=== PATIENT | male | born 1965 | race Caucasian/White ===

== ENCOUNTER → 2023-09-08 | Outpatient (CLI) | payer OTHER, SELFPAY | END | disposition home or self-care (01) | LOC: RAD.FUTURE 08:36 | PROVIDERS: Visit Provider Chiropractor | DX: M19.90 Unspecified osteoarthritis, unspecified site (principal) ==

== ENCOUNTER → 2023-09-19 | Outpatient (CLI) | payer OTHER, SELFPAY ==
--- NOTE | 2023-09-19 09:07 | RAD_ITS ---
STUDY: X-RAY - LUMBAR SPINE REASON FOR EXAM: Male, 57 years old. Pain. TECHNIQUE: 3 view(s) of the lumbar spine were obtained. COMPARISON: None FINDINGS: Normal lumbar lordosis. No substantial scoliosis. Normal alignment of the vertebrae. Diffuse lower thoracic and lumbosacral facet sclerosis. Intervertebral disc space narrowing in the lumbosacral spine diffusely with small osteophytes most marked at L5-S1. Vacuum phenomenon with endplate sclerosis at L5-S1. Normal soft tissues. RAD/Lumbar Spine 2 or 3 Views IMPRESSION: Mild diffuse lower thoracic and lumbosacral spondylosis most prominent at L5-S1. Electronically Signed: Vivek Che MD at 9:30 EST ,
--- NOTE | 2023-09-19 09:07 | RAD_ITS ---
STUDY: X-RAY - THORACIC SPINE REASON FOR EXAM: Male, 57 years old. Pain. TECHNIQUE: 2 view(s) of the thoracic spine were obtained on 5 images. COMPARISON: None. FINDINGS: Normal kyphosis of the thoracic spine. No substantial scoliosis. Diffuse moderate thoracic and upper lumbar facet sclerosis. Diffuse mild intervertebral disc space narrowing with small osteophytes. Normal soft tissues. RAD/Thoracic Spine 2 Views IMPRESSION: Diffuse mild to moderate thoracic and upper lumbar spondylosis. No acute abnormality or erosive changes. Electronically Signed: Vivek Che MD at 9:34 EST ,
== END | disposition home or self-care (01) ==
PROVIDERS: PCP Nurse Practitioner; Referring Provider Chiropractor; Visit Provider Chiropractor
DX: M19.90 Unspecified osteoarthritis, unspecified site (principal)
CPT/HCPCS: 72070; 72100